=== PATIENT | female | born 1965 | race Caucasian/White ===

== ENCOUNTER 2020-04-28 08:18 | Outpatient (CLI) | payer BC | END 2020-04-28 08:19 | disposition critical access hospital (66) | LOC: EMS 08:18 | PROVIDERS: ATTEND Surgery | DX: J39.2 Other diseases of pharynx (principal) | CPT/HCPCS: A0425; A0429 ==

== ENCOUNTER 2020-04-28 08:40 | Emergency (ER) | payer BC ==
[2020-04-28] MEDS ORDERED: diphenhydrAMINE INJ 50 MG/ML VIAL IM STA (08:49)
[2020-04-28] MEDS ORDERED: CHERRY SYRUP 10 ML UDC PO ONE (08:49)
[2020-04-28] MEDS ORDERED: DEXAMETHASONE 10 MG/ML VIAL PO STA (08:49)
--- NOTE | 2020-04-28 10:02 | ED Physician Documentation ---
History of Present Illness - Stated complaint Stated Complaint: ALLERGIC RX - Chief complaint Chief Complaint: Allergic Rx - History obtained from History obtained from: Patient - History of Present Illness Timing: Yesterday - Additonal information Additional information: 55-year-old female has recently changed her medication for her thyroid and she had have especially compounded because she felt that she was getting effects from gluten. She has discontinued this medication and 4 days ago started a compounded medication for her thyroid and yesterday she developed some scratchiness to her throat this morning on her way to work she developed what he felt like was her throat closing. She feels he is having allergic reaction. Review of Systems Constitutional: denies: Fever Eyes: denies: Decreased vision Ears: denies: Ear pain Nose: denies: Rhinorrhea / runny nose, Congestion Throat: reports: Sore throat Cardiac: denies: Chest pain / pressure, Palpitations Respiratory: reports: Dyspnea. denies: Cough GI: denies: Abdominal Pain, Nausea, Vomiting : denies: Dysuria, Frequency PD PAST MEDICAL HISTORY - Allergies Allergies/Adverse Reactions: Allergies Allergy/AdvReac Type Severity Reaction Status Date / Time adhesive tape Allergy Unknown Verified 04/28/20 08:57 latex Allergy Unknown Verified 04/28/20 08:57 PD ED PE NORMAL - Vitals Vital signs reviewed: Yes (Hypertensive) - General General: Alert and oriented X 3, No acute distress, Well developed/nourished - HEENT HEENT: Atraumatic, PERRL, EOMI, Other (Minimal posterior pharyngeal erythemaWith mild swelling to the uvula) - Neck Neck: Supple, no meningeal sign, No bony TTP - Cardiac Cardiac: RRR, No murmur - Respiratory Respiratory: No respiratory distress, Clear bilaterally - Abdomen Abdomen: Soft, Non tender - Back Back: No CVA TTP, No spinal TTP - Derm Derm: Normal color, Warm and dry, No rash - Extremities Extremities: No deformity, No edema - Neuro Neuro: Alert and oriented X 3, 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, No motor deficit, No sensory deficit, Normal speech Eye Opening: Spontaneous Motor: Obeys Commands Verbal: Oriented GCS Score: 15 - Psych Psych: Normal mood, Normal affect Results - Vitals Vitals: Vital Signs - 24 hr 04/28/20 04/28/20 08:57 09:34 Temperature 36.9 C Heart Rate 68 64 Respiratory 18 13 Rate Blood Pressure 130/87 H 115/78 O2 Saturation 100 99 Oxygen O2 Source Room air PD MEDICAL DECISION MAKING - ED course Complexity details: reviewed results, re-evaluated patient, considered differential, d/w patient ED course: 55-year-old female with concerns of allergic reaction has some mild swelling to the back of her throat she is moving air well she is administered dexamethasone 10 mg orally and 25 mg of Benadryl IM. Departure - Departure Disposition: 01 Home, Self Care Clinical Impression: Medication reaction Qualifiers: Encounter type: initial encounter Qualified Code(s): T50.905A - Adverse effect of unspecified drugs, medicaments and biological substances, initial encounter Condition: Stable Instructions: ED Drug React Allergic Follow-Up: Kary Jackman ND, LM [Primary Care Provider] - Comments: Today it appears he may have had a reaction to your new preparation of thyroid. Follow-up with your primary care doctor about a replacement for this and in the meantime take Benadryl or a nonsedating antihistamine for the next 2 days.
[2020-04-28 10:15] VITALS: BP 120/86
== END 2020-04-28 10:28 | disposition home or self-care (01) ==
LOC: EDUNIT# → ED 08:40
DX: J39.2 Other diseases of pharynx (principal); I89.8 Other specified noninfective disorders of lymphatic vessels and lymph nodes; T50.905A Adverse effect of unspecified drugs, medicaments and biological substances, initial encounter
CPT/HCPCS: 96372; 99283; 99284; A9270; J1200